=== PATIENT | male | born 1955 | race Hispanic/Latino ===

== ENCOUNTER 2024-03-18 12:15 | Observation (INO) | payer OTHER ==
[2024-03-15 15:07] LABS: BASOPHILS # (AUTO) 0.03 K/uL (0.00-0.20); BASOPHILS % (AUTO) 0.5 % (0.0-5.0); EOSINOPHILS # (AUTO) 0.17 K/uL (0.00-0.70); HEMATOCRIT 43.2 % (42-54); IMMATURE GRANULOCYTE ABSOLUTE 0.01 K/uL (0-1); LYMPHOCYTES # (AUTO) 1.8 K/uL (1.0-4.8); LYMPHOCYTES % (AUTO) 32.1 % (21.0-51.0); MEAN CORPUSCULAR HEMOGLOBIN 30.3 pg (27.0-33.0); MEAN CORPUSCULAR HGB CONC 33.3 g/dL (32.0-36.0); MEAN CORPUSCULAR VOLUME 90.9 fL (79-99); MONOCYTES # (AUTO) 0.6 K/uL (0.1-1.0); NEUTROPHILS % (AUTO) 54.2 % (40.0-77.0); PLATELET COUNT (AUTO) 172 K/uL (130-400); RED BLOOD CELL COUNT(AUTO) 4.75 MIL/uL (4.50-6.20); RED CELL DISTRIBUTION WIDTH 12.7 % (11.0-15.5); WHITE BLOOD COUNT (AUTO) 5.6 K/uL (4.8-10.8)
[2024-03-15 15:18] LABS: CREATININE 1.1 mg/dL (0.5-1.3); POTASSIUM 4.5 mmol/L (3.5-5.1)
[2024-03-15 15:42] VITALS: BP 137/59; PULSE 77; RESP 18; TEMP 97.7
[2024-03-15 15:45] LABS: INR 0.96 (0.85-1.15); PARTIAL THROMBOPLASTIN TIME 28.6 SEC (26.3-35.5); PROTHROMBIN TIME 10.4 SEC (9.6-11.6)
[2024-03-18] VITALS (12 sets, daily range): BP systolic 125–154; BP diastolic 65–92; PULSE 66–99; RESP 16–18; TEMP 97.4–98.4; O2SAT 98
[~2024-03-18] VITALS: Ht 162.6 cm; Wt 69.0 kg
[~2024-03-18 12:15] MED LIST: ALBU18HF7 IH; ATOR10 PO; CLOP75TA32 PO; FERR-72 PO; INS7030 SQ; ISOS60TA77 PO; LISI10TA24 PO; LORA10TA7 PO; METF-446 PO; METO25TA6 PO; NITR0.4T50 SL; TIOT18CA3 IH
--- NOTE | 2024-03-18 12:48 | EKG ---
[facility] Test Date: 2024-03-18 Test Time: 13:35:54 Pat Name: DAVID WILKINSON Department: [facility] Room: 229 Gender: M Client Reporting Associate: [id number] : 1955 Requested By: TAL CASTILLO Order Number: [id number] Reading MD: Clive Escobar Measurements Intervals [place] Rate: 66 P: 0 MN: 169 QRS: 16 QRSD: 140 T: -28 QT: 472 QTc: 495 Interpretive Statements Atrial-ventricular dual-paced rhythm Compared to ECG 11/01/2015 20:02:31 Sinus tachycardia no longer present Left-axis deviation no longer present Right bundle-branch block no longer present Electronically Signed On 03-20-2024 17:36:26 BRAILLE CODER by Clive Escobar Please click the below link to view image of tracing.
[2024-03-18] MEDS: 0.9%NACL 1000ML 1,000 ML IV SCH (12:59)
[2024-03-18] MEDS ORDERED: LIDOCAINE HCL 1% MDV 50ML VIAL ONE (15:43)
[2024-03-18] MEDS ORDERED: ceFAZolin SODIUM 1 GM VIAL ONE (15:43)
[2024-03-18] MEDS ORDERED: BUPIvacaine/PF 0.25% 30ML VIAL IJ ONE (15:43)
[2024-03-18] MEDS ORDERED: MIDAZOLAM HCL 1 MG/ML 2ML VIAL ONE (16:06)
[2024-03-18] MEDS ORDERED: FENTanyl CITRate PF 50 MCG/1 ML 2ML VIAL ONE (16:06)
[2024-03-18] MEDS ORDERED: IOHEXOL-350 50ML VIAL IV ONE (16:46)
--- NOTE | 2024-03-18 16:55 | NUR ---
transported pt from lab head to 229 josefina chavarria gave report to charge nurse on floor delivered pt without incident pt caox 3 dressing dry intact to left chest , to rm 229 charge nurse and primary nurse made aware i signed cath report pts spouse at bedside to assist with urinal
[2024-03-18] MEDS ORDERED: TEMAZepam 30 MG CAP PO PRN (18:30)
[2024-03-18] MEDS ORDERED: acetaMINOPHEN WITH coDEINE 1 TAB TAB PO PRN (18:30)
[2024-03-18] MEDS ORDERED: ondanSETRON 4MG INJ IV PRN (18:30)
[2024-03-18] MEDS: acetaMINOPHEN WITH coDEINE 1 TAB TAB PO PRN (19:54)
--- NOTE | 2024-03-18 20:30 | HMCIMG ---
CHEST 1VW CLINICAL HISTORY: s/p pacemaker battery change with lead upgrade COMPARISON: 11/01/2015 TECHNIQUE: Single view of the chest was obtained. FINDINGS: Lungs are clear. Cardiac size unremarkable. There is been interval placement of a pacemaker with one interrupted leads and no identified pneumothorax. IMPRESSION: There is no identified complication status post pacemaker change between the [place].
--- NOTE | 2024-03-18 20:33 | HP ---
[facility] Date of Service: Mar 18, 2024 Time of Service: 20:32 PCP:[facility] at [facility] HISTORY OF PRESENT ILLNESS: This is a 68 year old male with past medical history diabetes of hypertension, hyperlipidemia, Chronic obstructive pulmonary disease, obstructive sleep apnea on CPAP at home and coronary artery disease with cardiac stent x1 and cardiac pacemaker who underwent a S/P cardiac permanent pacemaker battery change and lead upgrade today 03/18/2024 performed by . Patient seen and examined in room 229, awake,alert and coherent ,complained of 5/10 incisional pain at the left chest. .Patient denies fever,chills,heather sea,vomiting,chest pain,palpitation and shortness of breath. Vital signs temperature 98.4 heart rate 71 blood pressure 138/79 saturation 98% on room air. Labs CBC unremarkable glucose 222 to 138 otherwise chemistry is unremarkable. Chest x-ray result revealed there is no identified complications status post pacemaker change between the [place]. We will continue to admit patient in PCCU. REVIEW OF SYSTEMS CONSTITUTIONAL: Denies fevers, chills, or night sweats. No unintentional weight loss reported. NEUROLOGICAL: Denies headache, amaurosis fugax, motor weakness, sensory deficit, vertigo/spinning sensation, gait abnormalities, or tremors. ENT: No hearing loss, otalgia, otorrhea, rhinitis, rhinorrhea, hoarseness, or sore throat. CARDIOVASCULAR: Denies any exertional angina, dyspnea on exertion, orthopnea, paroxysmal nocturnal dyspnea, palpitations, life-threatening arrhythmias, claudication. PULMONARY: Denies any shortness of breath, cough, phlegm/sputum, hemoptysis, pleuritic chest pain. SLEEP: Denies morning headaches, daytime somnolence or napping. Denies difficulty falling asleep, staying asleep, waking from sleep. Denies knowledge of snoring. GASTROINTESTINAL: Denies any type of dysphagia to either liquids or solids. Denies nausea, vomiting, pyrosis, early satiety, abdominal pain, diarrhea, constipation, or changes in stool consistency or caliber. Denies coffee-ground emesis, hematemesis, hematochezia, or melanotic stools. GENITOURINARY: Denies frequency, urgency, nocturia, hematuria or incontinence (Storage/Irritative symptoms.) Low urinary stream, straining to void, urinary intermittency or hesitancy, splitting of the voiding stream, terminal dribbling. ENDOCRINOLOGIC: Denies polyuria, polydipsia, polyphagia or heat/cold intolerances. HEMATOLOGIC: Denies thrombophilia/previous clots, or coagulopathy/bleeding disorders. ONCOLOGIC: Denies personal history of malignancy. DERMATOLOGIC: Denies rashes or pruritus. PSYCHIATRIC: Denies any suicidal or homicidal ideation. Denies hallucinations. PAST MEDICAL HISTORY: [ diabetes of hypertension, hyperlipidemia, Chronic obstructive pulmonary disease, obstructive sleep apnea on CPAP at home and coronary artery disease ] PAST SURGICAL HISTORY: [Cardiac stent x1 and cardiac pacemaker ] PAST SOCIAL HISTORY: [Patient lives with Marleny Sheldon. Patient denies cigarette and rec reational drug use admits to occasional alcohol drinking five beers every other week. ] FAMILY HISTORY: [ Cardiovascular disease ] Coded Allergies: No Known Drug Allergies (Unverified Allergy, Unknown, 03/15/24) PHYSICAL EXAM GENERAL APPEARANCE: The patient is awake, alert, and oriented, in no acute cardiopulmonary distress. NEUROLOGICAL: Cranial nerves II-XII grossly intact. Motor is 5/5 in bilateral upper and lower extremities proximal to distal. No sensory deficits. HEENT: Face is symmetric. Pupils are equal and reactive. Extraocular movements are intact. NECK: Supple. No JVD. No thyromegaly. No submental, submandibular, pre- /postauricular, occipital or supraclavicular lymphadenopathy. CHEST: Normal chest expansion. No Telemetry. LUNGS: Absence of any rales, rhonchi or any wheezing. CARDIOVASCULAR: Regular. S1 and S2 normal. No appreciable rubs, murmurs or gallops. ABDOMEN: Soft, nontender, and nondistended. There is no rebound, voluntary guarding, or rigidity. : Deferred. No [place]. EXTREMITIES: Non-edematous and not cyanotic. No clubbing. Good capillary refill. SKIN: Dressing to left upper chest with left arm sling Vital Sign (Last 24 Hours) 03/18/24 03/18/24 12:35 20:23 Temp 98.4 Pulse 71 Resp 18 B/P (MAP) 138/79 Pulse Ox 98 O2 Delivery Room Air FiO2 21 LABS: Laboratory: Test 03/18/24 12:39 Range/Units Whole Blood Glucose 138 H 70-110 MG/DL Current Medications Medications (Trade) Dose Ordered Sig/Derek Route PRN Reason Start Time Stop Time Status Last Admin Dose Admin Acetaminophen/ Codeine Phosphate (TYLenol-coDEINE TAB) 1 tab Q4H PRN PO MILD PAIN (1-3) 03/18/24 18:30 04/17/24 18:29 03/18/24 19:54 1 TAB Acetaminophen/ Codeine Phosphate (TYLenol-coDEINE TAB) 2 tab Q4H PRN PO MOD/SEVERE PAIN LEVEL 4 TO 10 03/18/24 18:30 04/17/24 18:29 Cefazolin Sodium (ANCEF 1 gm vial) 1 gm Q6H6 IVPB 03/18/24 22:15 03/19/24 00:01 Ondansetron HCl (zoFRAN 4MG INJ) 4 mg Q6H PRN IV NAUSEA 03/18/24 18:30 04/17/24 18:29 Sodium Chloride 1,000 ml @ 0 mls/hr Q0M IV 03/18/24 11:00 04/17/24 10:59 03/18/24 12:59 20 MLS/HR Temazepam (restORIL 30 MG CAP) 30 mg HS PRN PO SLEEP 03/18/24 18:30 03/25/24 18:29 DIAGNOSTICS / RADIOLOGY: [ ] ASSESSMENT: Status post cardiac permanent pacemaker battery change and lead upgrade POA Coronary artery disease with cardiac stent x1 POA Hypertension POA Hyperlipidemia POA Diabetes POA Obstructive sleep apnea POA Chronic obstructive pulmonary disease POA PLAN: We will admit patient in PCCU Patient on consistent carb diet We will replace electrolytes as needed per protocol We will start patient on home dose insulin and check blood sugar a.c. and HS with hypoglycemia protocol Home meds reconciled per cardiology and closely following the patient We will add p.r.n. medication for pain fever, nausea and vomiting We will check labs in a.m. Further recommendations to follow depending upon hospitalization course Case discussed with the attending MD and came up with the above treatment and plan of care ADVANCED CARE PLANNING 1. Which of the following were discussed? Hospice Care - No Therapeutic options - Yes Advance Directives - No Other discussions - 2. Discussed with who? Patient and Marleny 3. Voluntary nature of this service was explained to the patient? Yes 4. Amount of time spent - _22 5. Reviewed by Physician? (if this service was performed by NPP) Yes Patient seen and examined by me. Agree with note by OUTSIDE MEDICAL SALES REPRESENTATIVE SEE ADDITIONAL ORDERS PER CHART DISCUSSED WITH NURSING STAFF NOHEMI THEODORE BUILDING APPRAISER Mar 18, 2024 20:33
[2024-03-18] MEDS ORDERED: ALBUTEROL INHALER 90MCG/INH IH PRN (21:00)
[2024-03-18] MEDS ORDERED: GLUCAGON 1MG KIT 1 MG ML IM PRN ×2 (21:00)
[2024-03-18] MEDS ORDERED: NITROGLYCERIN 0.4 MG SL TAB SL PRN (21:00)
[2024-03-18] MEDS ORDERED: PoTASSium chl 10% ELIXIR 20MEQ 20 MEQ/15 ML UDCUP PO PRN (21:00)
[2024-03-18] MEDS ORDERED: PoTASSium chloRIDE 20MEQ/100ML 100 ML IV PRN (21:00)
[2024-03-18] MEDS ORDERED: DEXTROSE 50%-WATER 50 ML DISP.SYRIN IV PRN ×2 (21:00)
--- NOTE | 2024-03-18 21:00 | NUR ---
Assumed care at this time. Pt aax3 without any distress or discomfort. BR continues. Spouse at bedside. PPM site wdl; dg clean and intact. No bleeding, swelling, bruising, redness seen to site. Addendum: 03/19/24 at 0301 by NORMA JACQUES, SOCIOLOGY FACULTY MEMBER SOCIOLOGY FACULTY MEMBER [id number] Saumya HEBREW PROFESSOR here to see pt as per admit order. Meds reconciled per Dr. Hansen written/signed med-rec. Per Saumya, please check BS ACHS but continue pt's own Humulin 70/30 regimen. Pt assessed and chart reviewed.
[2024-03-18] MEDS: atorVAStatin 10 MG TABLET PO SCH (21:51)
[2024-03-18] MEDS: LISINOPRIL 10 MG TABLET PO SCH (21:51)
[2024-03-18] MEDS: FAMOTIDINE 20MG TAB PO SCH (21:51)
[2024-03-18] MEDS: ceFAZolin SODIUM 1 GM VIAL IVPB SCH (21:52)
--- NOTE | 2024-03-18 22:45 | NUR ---
Ice pack x1 2044 by Danny PACHECO Ice pack x2 2144 by Marilyn HORNER Ice pack x3 2244 by Marilyn HORNER
[2024-03-19] MEDS: IpraTROPium 0.5 MG/2.5 ML INH IH SCH
[2024-03-19 03:38] VITALS: BP 107/59; PULSE 66; RESP 18; TEMP 98.5
[2024-03-19] MEDS: ceFAZolin SODIUM 1 GM VIAL IVPB ONE (03:39)
[2024-03-19 03:50] LABS: BASOPHILS # (AUTO) 0.03 K/uL (0.00-0.20); BASOPHILS % (AUTO) 0.5 % (0.0-5.0); HEMATOCRIT 40.9 % (42-54); IMMATURE GRANULOCYTE ABSOLUTE 0.02 K/uL (0-1); MEAN CORPUSCULAR HEMOGLOBIN 29.6 pg (27.0-33.0); MEAN CORPUSCULAR HGB CONC 32.5 g/dL (32.0-36.0); MEAN CORPUSCULAR VOLUME 90.9 fL (79-99); MONOCYTES # (AUTO) 0.7 K/uL (0.1-1.0); MONOCYTES % (AUTO) 10.2 % (3.0-13.0); NEUTROPHILS # (AUTO) 4.7 K/uL (1.8-7.7); PLATELET COUNT (AUTO) 157 K/uL (130-400); RED CELL DISTRIBUTION WIDTH 12.9 % (11.0-15.5); WHITE BLOOD COUNT (AUTO) 6.7 K/uL (4.8-10.8)
[2024-03-19 04:14] LABS: ALBUMIN 3.6 g/dL (3.5-5.0); BILIRUBIN,TOTAL 0.4 mg/dL (0.2-1.0); CREATININE 1.1 mg/dL (0.5-1.3); MAGNESIUM 1.8 mg/dL (1.80-2.40); POTASSIUM 3.8 mmol/L (3.5-5.1); TOTAL PROTEIN, SERUM 7.1 g/dL (6.0-8.3)
[2024-03-19] MEDS: MAGNESIUM 2GM PREMIX 50ML 50 ML IV PRN (05:04)
[2024-03-19] MEDS: PoTASSium chloRIDE 20MEQ ER 20 MEQ ERTAB PO PRN (05:04)
--- NOTE | 2024-03-19 06:33 | HMCIMG ---
CHEST 1VW CLINICAL HISTORY: s/p pacemaker battery change our with lead upgrade COMPARISON: 03/18/2024 TECHNIQUE: Single view of the chest was obtained. FINDINGS: Lungs are clear. Cardiomediastinal silhouette and bony structures are stable. The pacemaker leads are unchanged. IMPRESSION: Stable chest
[2024-03-19 07:42] VITALS: BP 115/57; PULSE 63; RESP 20; TEMP 98.5
[2024-03-19 08:00] VITALS: O2SAT 98
[2024-03-19] MEDS: metoPROLOL tartRATE 25 MG TAB PO SCH (10:20)
[2024-03-19] MEDS: FERROUS SULFATE 325 MG TABLET.DR PO SCH (10:20)
[2024-03-19] MEDS: metFORmin HCL 500 MG TABLET PO SCH (10:21)
[2024-03-19] MEDS: cloPIDOgrel 75MG TAB PO SCH (10:21)
[2024-03-19] MEDS: ISOSORBIDE MONO 60MG SR TAB PO SCH (10:21)
[2024-03-19 11:45] VITALS: BP 100/58; PULSE 68; RESP 18; TEMP 97.5
--- NOTE | 2024-03-19 12:33 | DS ---
Discharge Summary Hospital Course Summary: The patient initially admitted to the hospital March 18, 2024 with the following history of the present illness: This is a 68 year old male with past medical history diabetes of hypertension, hyperlipidemia, Chronic obstructive pulmonary disease, obstructive sleep apnea on CPAP at home and coronary artery disease with cardiac stent x1. Vital signs temperature 98.4 heart rate 71 blood pressure 138/79 saturation 98% on room air. Labs CBC unremarkable glucose 222 to 138 otherwise chemistry is unremarkable. Chest x-ray result revealed there is no identified complications status post pacemaker change between the [place]. During the course of the hospitalization patient was seen and evaluated by bobtail driver, the patient underwent cardiac pace maker battery change and lead upgrade 03/18/2024 by bobtail driver. Tolerated procedure well. Today the patient is hemodynamically stable, cleared from Cardiology standpoint to be discharged home. [place](s): Cardiology Procedure(s): S/P cardiac permanent pacemaker battery change and lead upgrade 03/18/2024 performed by . Assessment/Plan: Final diagnosis Status post cardiac permanent pacemaker battery change and lead upgrade POA Coronary artery disease with cardiac stent x1 POA Hypertension POA Hyperlipidemia POA Diabetes POA Obstructive sleep apnea POA Chronic obstructive pulmonary disease POA Discharge Instructions: Patient to follow up with primary care physician and bobtail driver Dr. Hansen as an outpatient and to return to the hospital if his condition changes. Patient agreed with plan and understood the information provided. Home Medications: Reported Medications Ferrous Sulfate (Ferrous Sulfate) 325 Mg (65 Mg Iron) Tablet, 325 MG PO DAILY, TAB 03/15/24 Atorvastatin Calcium (LIPITOR) 20 Mg Tab, 20 MG PO HS, TAB 03/15/24 Loratadine (Loratadine) 10 Mg Tablet, 10 MG PO DAILY, TAB 24 Albuterol Sulfate (Ventolin Hfa) 90 Mcg Hfa.aer.ad, 1 PUFF IH QIDP PRN for SHORTNESS OF BREATH/WHEEZING, INHALER 03/15/24 Nitroglycerin (Nitroglycerin) 0.4 Mg Tab.subl, 0.4 MG SL AD PRN for CHEST PAIN, TAB.SL 03/15/24 Tiotropium [place] (Spiriva) 18 Mcg Cap.w.dev, 18 MCG IH DAILY 03/15/24 Isosorbide Mononitrate (Isosorbide Mononitrate ER) 60 Mg Tab.er.24h, 60 MG PO DAILY, TAB 03/15/24 Metoprolol Tartrate (Metoprolol Tartrate) 25 Mg Tablet, 25 MG PO DAILY, TAB 03/15/24 Lisinopril (Lisinopril) 10 Mg Tablet, 10 MG PO HS, TAB 03/15/24 Hum Insulin NPH/Reg Insulin Hm (Humulin 70/30) 100 Unit/Ml (70-30) Inj, 10 UNITS SQ HS, ML 03/15/24 Hum Insulin NPH/Reg Insulin Hm (Humulin 70/30) 100 Unit/Ml (70-30) Inj, 22 UNITS SQ DAILY, ML 03/15/24 Metformin HCl (Metformin HCl) 1,000 Mg Tablet, 1000 MG PO BID, TAB 03/15/24 Clopidogrel Bisulfate (Clopidogrel) 75 Mg Tablet, 75 MG PO DAILY, TAB 03/15/24 Time spent arranging discharge: 31-60 minutes ZAFAR KAUR MD Mar 19, 2024 12:33
--- NOTE | 2024-03-19 14:01 | NUR ---
DISCHARGE INSTRUCTIONS WERE GIVEN TO THIS PATIENT AND EDUCATION WAS PROVIDED ON LEFT ARM RESTRICTIONS AND PATIENT VOICED UNDERSTANDING. PIV TO LEFT HAND WAS REMOVED AND CATHETER WAS INTACT. DRY DRESSING WAS APPLIED. TELE MERARI WAS REMOVED AND RETURNED TO TELEMETRY ROOM. PATIENT WAS IN AGREEMENT TO SETUP FOLLOW UP APPT ON THURSDAY WHEN DR. CASTILLO'S OFFICE IS OPEN.
== END 2024-03-19 13:15 | disposition home or self-care (01) ==
LOC: DAH 12:15 → DAHIP 12:16 → 2AH 19:06
PROVIDERS: ADMIT Internal Medicine Interventional Cardiology; ATTEND Internal Medicine Interventional Cardiology
DX: R07.89 Other chest pain (principal); I45.3 Trifascicular block; E78.5 Hyperlipidemia, unspecified; E11.9 Type 2 diabetes mellitus without complications; I10 Essential (primary) hypertension; G47.33 Obstructive sleep apnea (adult) (pediatric); J44.9 Chronic obstructive pulmonary disease, unspecified; I25.10 Atherosclerotic heart disease of native coronary artery without angina pectoris; Z95.0 Presence of cardiac pacemaker; Z95.5 Presence of coronary angioplasty implant and graft; Z98.890 Other specified postprocedural states; Z79.899 Other long term (current) drug therapy
CPT/HCPCS: 80048; 85025 ×2; 85610; 85730; 36415 ×2; 33208; 96372; 96365; 82948 ×3; 71045 ×2; 93005; 96366; 96367; 83036; 83735; 80061; 80053; C1769; C1785; C1898; C1894; G0378 ×18; J3010; J0690 ×3; J7030; J0665; J2250; J3490; Q9967; J1815 ×2; A4215; A4223 ×3; A4222; A4221; A4663; A4216; A4606; J3475; 33207; 96361; 99156; 99157